=== PATIENT | male | born 1990 | race African-American/Black ===

== ENCOUNTER 2024-03-27 07:38 | Emergency (ER) | payer SELFPAY ==
[~2024-03-27] VITALS: Ht 188 cm; Wt 131.5 kg
[2024-03-27] MEDS ORDERED: LORAZEPAM 1 MG TABLET ONE ×2 (08:40→08:44)
[2024-03-27] MEDS: LORAZEPAM 0.5 MG TABLET PO ONE ×2 (08:53→08:55)
[2024-03-27 08:56] VITALS: BP 139/79; TEMP 98.3; O2SAT 97
== END 2024-03-27 08:56 | disposition home or self-care (01) ==
LOC: ER 07:38
DX: F41.9 Anxiety disorder, unspecified (principal)
CPT/HCPCS: A4606; A4663